=== PATIENT | male | born 1945 | race Caucasian/White ===

== ENCOUNTER 2024-04-30 08:38 | Inpatient (IN) ==
[2024-04-30] MEDS ORDERED: IOPAMIDOL 100 ML BOTTLE IV ONE (08:39)
[2024-04-30] MEDS: IPRATROPIUM/ALBUTEROL 3 ML AMPUL.NEB NEB ONE (09:10)
[2024-04-30] MEDS: FUROSEMIDE 100 MG/10 ML VIAL IV ONE (10:13)
[2024-04-30] MEDS: OSELTAMIVIR PHOSPHATE 75 MG CAPSULE PO ONE (10:14)
[2024-04-30 10:27] LABS: Basophils # (Auto) 0.01 K/mcL (0.00-0.30); Basophils % (Auto) 0.1 % (0.0-2.0); Eosinophils # (Auto) 0.31 K/mcL (0.00-0.70); Hematocrit 29.9 % (40.1-51.0); Hemoglobin 9.7 g/dL (13.7-17.5); Lymphocytes # (Auto) 1.67 K/mcL (1.50-4.80); Lymphocytes % (Auto) 21.5 % (15.5-49.0); Mean Cell Volume 89.8 fL (80.0-100.0); Mean Corpuscular HGB Conc 32.4 g/dL (31.0-36.0); Mean Platelet Volume 10.1 fL (8.8-12.5); Monocytes # (Auto) 0.87 K/mcL (0.10-0.90); Monocytes % (Auto) 11.2 % (1.0-12.0); Neutrophils % (Auto) 62.8 % (38.0-78.0); Platelet Count 259 K/mcL (140-440); RBC 3.33 M/mcL (4.63-6.08); Red Cell Distribution Width 14.2 % (11.5-14.5); WBC 7.8 K/mcL (4.5-11.0)
[2024-04-30 10:30] LABS: Prothrombin Time 13.4 sec (11.9-14.5)
[2024-04-30 10:55] LABS: ALT/SGPT 11 U/L (<40); AST/SGOT 32 U/L (<40); Albumin 4.1 gm/dL (3.2-5.2); Albumin/Globulin Ratio 1.6 (1.0-2.3); Alkaline Phosphatase 84 U/L (39-117); Bilirubin,Total 0.6 mg/dL (0.1-1.0); Blood Urea Nitrogen 47 mg/dL (8-23); Calcium 9.7 mg/dL (8.6-10.4); Carbon Dioxide 24 mmol/L (22-30); Chloride 97 mmol/L (96-108); Globulin 2.6 gm/dL (2.2-3.7); Glomerular Filtration Rate 51; Glucose 178 mg/dL (70-105); Potassium 5.4 mmol/L (3.3-5.1); Sodium 137 mmol/L (133-145)
[2024-04-30 11:42] LABS: Appearance,Urine Clear (Clear); Bilirubin,Urine Negative (Negative); Color,Urine Yellow; Culture Indicated,Urine No; Glucose,Urine (UA) Negative (Negative); Ketones,Urine Negative (Negative); Leukocyte Esterase,Urine Negative /uL (Negative); Nitrate,Urine Negative (Negative); PH,Urine 5.5 (5.0-9.0); Protein,Urine Negative (Negative); Urine Blood Negative ery/mcL (Negative); Urobilinogen,Urine Normal
[2024-04-30] MEDS ORDERED: POTASSIUM CHLORIDE 20 MEQ TABLET PO PRN ×2 (16:20)
[2024-04-30] MEDS ORDERED: POLYETHYLENE GLYCOL 3350 17 GM PACKET PO PRN (16:20)
[2024-04-30] MEDS ORDERED: SENNOSIDES 1 TABLET PO PRN (16:20)
[2024-04-30] MEDS ORDERED: DEXTROSE 50% 50 ML VIAL IV PRN (16:20)
[2024-04-30] MEDS ORDERED: POTASSIUM CHLORIDE 40 MEQ in DEXTROSE 5% IN WATER 500 ML IV PRN (16:20)
[2024-04-30] MEDS ORDERED: LABETALOL HCL 20 MG/4 ML VIAL IV PRN (16:20)
[2024-04-30] MEDS ORDERED: MAGNESIUM SULFATE 2 GM/50 ML BAG IV PRN (16:20)
[2024-04-30] MEDS ORDERED: IPRATROPIUM/ALBUTEROL 3 ML AMPUL.NEB NEB PRN (16:20)
[2024-04-30] MEDS ORDERED: DEXTROSE 31 GM ORAL.SUSP PO PRN (16:20)
[2024-04-30] MEDS: FUROSEMIDE 40 MG/4 ML VIAL IV SCH (16:57)
[2024-04-30] MEDS: INSULIN LISPRO 1 UNIT/0.01 ML UNIT SQ SCH (16:57)
[2024-04-30] MEDS ORDERED: NITROGLYCERIN 0.4 MG TAB.SUBL SL PRN (18:39)
[2024-04-30] MEDS: SUCRALFATE 1 GM TABLET PO SCH (20:08)
[2024-04-30] MEDS ORDERED: METOPROLOL TARTRATE 5 MG/5 ML VIAL IV PRN (20:21)
[2024-04-30] MEDS: SUCRALFATE 1 GM/10 ML ORAL.SUSP PO ONE (20:36)
[2024-04-30] MEDS: DOCUSATE SODIUM 100 MG CAPSULE PO SCH (20:47)
[2024-04-30] MEDS: CARBIDOPA/LEVODOPA 25/100 TABLET PO SCH (20:47)
[2024-04-30] MEDS: METOPROLOL TARTRATE 25 MG TABLET PO SCH (20:47)
[2024-04-30] MEDS: ENOXAPARIN 40 MG/0.4 ML SYRINGE SQ SCH (20:48)
[2024-04-30] MEDS: CARBOXYMETHYLCELLULOSE SODIUM 1 EACH DROPER.GEL OP SCH (20:48)
[2024-04-30] MEDS: TAMSULOSIN 0.4 MG CAPSULE PO SCH (20:48)
[2024-04-30] MEDS: INSULIN GLARGINE, HUMAN 1 UNIT/0.01 ML SQ SCH (20:48)
[2024-04-30] MEDS: SIMETHICONE 80 MG TAB.CHEW CHEWED SCH (20:48)
[2024-05-01] MEDS: ACETAMINOPHEN 325 MG TABLET PO PRN (04:15)
[2024-05-01] MEDS: 0.9 % SODIUM CHLORIDE 250 ML IV SCH (05:59)
[2024-05-01] MEDS: DILTIAZEM 125 MG in DEXTROSE 5% IN WATER 100 ML IV SCH (05:59)
[2024-05-01 06:17] LABS: Hematocrit 28.6 % (40.1-51.0); Hemoglobin 9.2 g/dL (13.7-17.5); Mean Cell Volume 90.8 fL (80.0-100.0); Mean Corpuscular HGB Conc 32.2 g/dL (31.0-36.0); Platelet Count 228 K/mcL (140-440); RBC 3.15 M/mcL (4.63-6.08); Red Cell Distribution Width 14.3 % (11.5-14.5)
[2024-05-01 06:40] LABS: ALT/SGPT 7 U/L (<40); AST/SGOT 29 U/L (<40); Albumin 3.7 gm/dL (3.2-5.2); Albumin/Globulin Ratio 1.3 (1.0-2.3); Alkaline Phosphatase 74 U/L (39-117); Bilirubin,Direct < 0.2 mg/dL (0-0.3); Bilirubin,Total 0.6 mg/dL (0.1-1.0); Blood Urea Nitrogen 41 mg/dL (8-23); Calcium 9.2 mg/dL (8.6-10.4); Carbon Dioxide 25 mmol/L (22-30); Chloride 99 mmol/L (96-108); Globulin 2.8 gm/dL (2.2-3.7); Glomerular Filtration Rate 51; Glucose 144 mg/dL (70-105); Lactate Dehydrogenase 195 U/L (135-225); Phosphorous 4.2 mg/dL (2.5-4.5); Potassium 4.7 mmol/L (3.3-5.1); Sodium 136 mmol/L (133-145); Triglycerides 142 mg/dL (<150)
[2024-05-01 07:21] LABS: Eosinophils % (Manual) 6 % (0-7); Lymphocytes % 13 % (15-49); Monocytes % (Manual) 8 % (1-12); Platelet Estimate NORMAL (Normal); RBC Morphology NORMAL (Normal); Reactive Lymphocytes 1 % (0-2); Segmented Neutrophils % 72 % (38-78)
[2024-05-01] MEDS ORDERED: LISINOPRIL 20 MG TABLET PO SCH (09:00)
[2024-05-01] MEDS: ATORVASTATIN 40 MG TABLET PO SCH (09:12)
[2024-05-01] MEDS: ASPIRIN 81 MG TAB.CHEW PO SCH (09:12)
[2024-05-01] MEDS: METOLAZONE 2.5 MG TABLET PO SCH (09:32)
[2024-05-02 06:28] LABS: ALT/SGPT < 5 U/L (<40); AST/SGOT 28 U/L (<40); Albumin 3.4 gm/dL (3.2-5.2); Albumin/Globulin Ratio 1.4 (1.0-2.3); Alkaline Phosphatase 67 U/L (39-117); Bilirubin,Direct < 0.2 mg/dL (0-0.3); Bilirubin,Total 0.5 mg/dL (0.1-1.0); Blood Urea Nitrogen 41 mg/dL (8-23); Calcium 8.9 mg/dL (8.6-10.4); Carbon Dioxide 25 mmol/L (22-30); Chloride 97 mmol/L (96-108); Globulin 2.5 gm/dL (2.2-3.7); Glomerular Filtration Rate 51; Glucose 110 mg/dL (70-105); Lactate Dehydrogenase 190 U/L (135-225); Phosphorous 4.2 mg/dL (2.5-4.5); Potassium 4.2 mmol/L (3.3-5.1); Sodium 134 mmol/L (133-145); Triglycerides 124 mg/dL (<150); Uric Acid 10.4 mg/dL (2.5-8.0)
[2024-05-02] MEDS: ALBUMIN HUMAN 25 GM/100 ML BAG IV ONE (11:59)
[2024-05-02] MEDS: CARBIDOPA/LEVODOPA 25/100 TABLET PO SCH (13:04)
[2024-05-04] MEDS: ENOXAPARIN 40 MG/0.4 ML SYRINGE SQ SCH (08:41)
[2024-05-04 08:48] LABS: Basophils # (Auto) 0.01 K/mcL (0.00-0.30); Basophils % (Auto) 0.1 % (0.0-2.0); Eosinophils # (Auto) 0.55 K/mcL (0.00-0.70); Eosinophils % (Auto) 7.5 % (0.0-7.0); Hematocrit 29.5 % (40.1-51.0); Hemoglobin 9.8 g/dL (13.7-17.5); Lymphocytes # (Auto) 2.67 K/mcL (1.50-4.80); Lymphocytes % (Auto) 36.6 % (15.5-49.0); Mean Cell Volume 87.8 fL (80.0-100.0); Mean Corpuscular HGB Conc 33.2 g/dL (31.0-36.0); Mean Platelet Volume 9.6 fL (8.8-12.5); Monocytes # (Auto) 0.84 K/mcL (0.10-0.90); Monocytes % (Auto) 11.5 % (1.0-12.0); Platelet Count 241 K/mcL (140-440); RBC 3.36 M/mcL (4.63-6.08); Red Cell Distribution Width 13.9 % (11.5-14.5); WBC 7.3 K/mcL (4.5-11.0)
[2024-05-04 09:10] LABS: ALT/SGPT < 5 U/L (<40); AST/SGOT 26 U/L (<40); Albumin/Globulin Ratio 1.4 (1.0-2.3); Alkaline Phosphatase 79 U/L (39-117); Bilirubin,Total 0.6 mg/dL (0.1-1.0); Blood Urea Nitrogen 39 mg/dL (8-23); Calcium 9.2 mg/dL (8.6-10.4); Carbon Dioxide 28 mmol/L (22-30); Chloride 92 mmol/L (96-108); Globulin 2.9 gm/dL (2.2-3.7); Glomerular Filtration Rate 51; Glucose 203 mg/dL (70-105); Potassium 4.3 mmol/L (3.3-5.1); Sodium 133 mmol/L (133-145)
[2024-05-04] MEDS: PNEUMOCOCCAL 23-VAL P-SAC VAC 0.5 ML SYRINGE IM ONE ×2 (10:16→10:30)
[2024-05-04 11:41] VITALS: TEMP 97.1; O2SAT 100
== END 2024-05-04 12:05 | DRG 302 ==
LOC: ED 08:38 → ICU 16:00
PROVIDERS: ADMIT Internal Medicine; ATTEND Student in an Organized Health Care Education/Training Program